=== PATIENT | female | born 1940 | race Caucasian/White ===

== ENCOUNTER → 2017-06-25 | Outpatient (CLI) | payer OTHER ==
[~2017-06-25] VITALS: Ht 160 cm; Wt 99.2 kg
[~2017-06-25] MED LIST: ALLEGRA ALLERG180 MG PO; ASPERDRINK81 MG PO; ASPIR 8181 MG PO; ASPIR-LOW81 MG PO; ATORVASTATIN CA40 MG PO; CALCIUM + VITA1 EACH PO; CALCIUM 500 +1 EAC5 PO; CALCIUM 600 +1 EAC8 PO; CENTRUM SILVER1 EAC4 PO; COLACE 100 MG100 MG PO; EYE CAPS VITAMIN PO; FLONASE 0.05%50 MCG NASAL; GLUCOSAMINE CH1 EAC2 PO; GLUCOTEN CAPLE1 EACH PO; HYDROCHLOROTHIA25 M2 PO; ICAPS AREDS FO1 EACH PO; LEVOTHYROXINE0.2 M1 PO; LIPITOR 20 MG T20 M1 PO; MIRALAX17 GM PO; MOBIC7.5 MG PO; MULTI VITAMIN1 EACH PO; NORCO 7.5-3251 EACH PO; PRILOSEC20 MG PO; PRINIVIL40 MG PO; PROZAC10 MG PO; RESTASIS1 EACH; VITAMIN D400 UNIT PO; ZANTAC 150MG T150 MG PO; ZYRTEC10 M5 PO
--- NOTE | ~2017-06-25 | HPC ---
[facility] [place] [address] PAIN MANAGEMENT CONSULTATION Name: JOSE VILLARREAL Room #: REG [facility] Sylvia.#: [id number] Admission: 06/25/17 Attend Phys: Roberth Heaton DO Discharge: Date of : 40 Report #: [id number] THIS REPORT FOR: //name// CC: Veda Heaton The patient is a 76-year-old female, prior seen in pain clinic nearly 2 years ago July 2015, for symptomatic lumbar radiculopathy. She somewhat lost to follow up. She had a right L2-L3 transforaminal epidural injection with overall improvement of baseline pain. She returns to pain clinic today, she was referred by Dr. Mc Shay's office for consideration for epidural injection prior to consideration for extending her fusion. She currently has a fusion at L4-L5 with bilateral pedicle screws. We were requested to repeat epidural injection at L3-L4 consideration of extending the fusion at this level. The patient returns to clinic noting pain is primarily low back, left buttock, posterior thigh, right leg down to the foot. She rates pain a 2-3 on VAS at present, gets worse with standing or walking. Worse in the evening. She has tried heat, Meloxicam 7.5 b.i.d. with nominal efficacy. PHYSICAL EXAMINATION: Shows a 76-year-old female, moderately elevated BMI at 38.7 kg/m2. Vital signs are stable as noted in the EMR. Rises from chair using armrest. Diffuse tenderness across the low back. Lumbar flexion is limited. She does have some point tenderness in the left buttock. Positive straight leg raise on the left with pain exacerbated with bilateral hip flexion. ASSESSMENT: Symptomatic lumbar radiculopathy status post decompressive laminectomy. We were requested to do an L3 epidural injection for surgical planning. If this does not afford adequate relief, we may consider L5-S1 epidural injection versus caudal injection for a component of L5 radicular symptoms as well. Thank you for allowing me to participate in the patient's care. PROCEDURE: Midline Lumbar epidural injection under fluoroscopy. PROCEDURE NOTE: After both written and informed consent to include risk of spinal cord damage, increased pain, weakness and dural puncture, the patient was taken to the fluoroscopy suite, placed in the prone position. After sterile prep and drape, a skin wheal with lidocaine was raised. A 22-gauge epidural Tuohy needle was inserted in the midline at L3-L4 with good loss to resistance. Negative aspiration for cerebrospinal fluid or blood was noted. Then 1 mL of Omnipaque under biplanar fluoroscopy showed good spread within the epidural space. This was followed with 80 mg of triamcinolone plus 1 mL of 1.5% preservative-free Xylocaine, 0.5 mL Xylocaine was then injected to flush the needle; it was removed. The patient was monitored for an appropriate period of time and discharged in good and stable condition. [address] [address] PAIN MANAGEMENT CONSULTATION Name: JOSE VILLARREAL Room #: REG VERONICA Weiss#: [id number] Admission: 06/25/17 Attend Phys: Roberth Heaton, DO Discharge: Date of : 40 Report #: [id number] The patient was discharged in good and stable condition, noting incremental improvement of baseline pain, perhaps 50%. We will have the patient to follow up in about 3 weeks to evaluate efficacy of interventional therapy. We will keep you abreast of her progress. By: 0615 0933 Roberth Heaton DO /doe
[2017-06-25 13:49] VITALS: BP 123/78
== END | disposition home or self-care (01) ==
LOC: PAIN 07:16
DX: M54.16 Radiculopathy, lumbar region (principal); Z98.890 Other specified postprocedural states; Z88.0 Allergy status to penicillin; Z88.2 Allergy status to sulfonamides; Z79.82 Long term (current) use of aspirin; Z79.899 Other long term (current) drug therapy; Z79.891 Long term (current) use of opiate analgesic

== ENCOUNTER → 2017-07-27 | Outpatient (CLI) | payer OTHER ==
[~2017-07-27] VITALS: Ht 157.5 cm; Wt 101.6 kg
[~2017-07-27] MED LIST changes: +HYDROCODON-ACE1 EAC8 PO; +HYDROCODONE-AP1 EA11 PO; +NEURONTIN 300300 M1 PO; +PRILOSEC 20 MG20 MG PO
--- NOTE | ~2017-07-27 | HPC ---
[facility] [place] [address] PAIN MANAGEMENT CONSULTATION Name: JOSE VILLARREAL Room #: REG VERONICA Weiss#: [id number] Admission: 07/27/17 Attend Phys: Roberth Heaton DO Discharge: Date of : 40 Report #: [id number] THIS REPORT FOR: //name// CC: Veda Heaton HISTORY OF PRESENT ILLNESS: The patient is a 76-year-old female, prior seen in pain clinic on 06/25/2017. We did an L3-L4 epidural injection at that time. She prior had had lumbar fusion L4-L5 in 2006. She is having ongoing axial back pain. Had had some component of neurogenic claudication. She is seen for prolonged visit today, from 10:20 10:45, greater than 50% of this 25-minute visit today was spent counseling the patient, discussing therapeutic options. She notes the epidural injection afforded near 100% relief for 2 weeks, the pain has recurred to baseline with no incremental improvement. She does note pain is primarily low back. She denies leg pain. She did see Dr. Shay. He had suggested at some point they may need to extend her fusion to include L3-L4; however, he is trying to postpone that eventuality. The patient tells me she can walk or stand about 20 minutes before low back pain becomes problematic. Difficult to tell if this is neurogenic claudication or simply axial back pain coming from lumbar spondylosis at L5-S1. Her pain is over the L5 area. It is below the level of the iliac crest and it is midline; it is exacerbated with side bending, rotation and flexion. Lower extremity strength is preserved. The patient does not have a history of osteo or rheumatoid arthritis. She is moderately obese with a BMI of 41 kilograms per meter squared, was counseled regarding increased activity and dietary discretion. Vital signs show modest hypertension 143/90, pulse 79, respirations 16. Room air oxygen saturation 98%. Subjective pain score is 4 on a VAS. She has some subjective dizziness, though states she has not fallen in the last 3 months. Prior to her back surgery, she had some left anterior tibialis weakness though to her credit with ongoing exercise, this is fairly inconsequential on physical exam. She is hypertensive. Medicines were reconciled today. She has not been on opiate therapy for chronic pain. PHYSICAL EXAMINATION: Shows a 76-year-old female, again moderately obese with a BMI of 41 kilograms per meter squared. Rises from chair using armrest. Gait is tandem and despite history of left anterior tibialis weakness, dorsiflexion is fairly symmetric as is lower extremity extension and hip flexion. She is tender across the low back and the L5-S1 area. Pain is exacerbated with rotation and side bending. She has a well-healed scar compatible with prior fusion at L4-L5. ASSESSMENT: Symptomatic lumbar spondylosis in a patient status post lumbar [address] [address] PAIN MANAGEMENT CONSULTATION Name: JOSE VILLARREAL Room #: REG VERONICA Weiss#: [id number] Admission: 07/27/17 Attend Phys: Roberth Heaton DO Discharge: Date of : 40 Report #: [id number] decompressive laminectomy. RECOMMENDATION: Discussed with the patient today about therapeutic option. We have elected to move forward with L5-S1 facet joint injections at next visit. If this affords transient relief, we will consider medial branch dorsal rami diagnostic blocks at L4 and L5 bilateral. Discharged in good and stable condition after 25-minute visit spent counseling the patient. Plan on moving forward with bilateral L5-S1 facet joint injection at next visit. This will help us determine what percentage of pain is coming from the L5-S1 facet joint versus simply an aberrant presentation of neurogenic claudication. <ELECTRONICALLY SIGNED> By: Roberth Heaton DO 07/29/17 0807 1112 1209 Roberth Heaton DO /nt
[2017-07-27 10:06] VITALS: BP 143/90
== END ==
LOC: PAIN 07-16 12:26
DX: M47.896 Other spondylosis, lumbar region (principal); Z98.890 Other specified postprocedural states

== ENCOUNTER → 2017-08-03 | Outpatient (CLI) | payer OTHER ==
[~2017-08-03] VITALS: Ht 157.5 cm; Wt 101.2 kg
--- NOTE | ~2017-08-03 | HPC ---
[facility] [place] [place] [address] PAIN MANAGEMENT CONSULTATION Name: OJSE VILLARREAL Room #: REG VERONICA Ward.#: [id number] Admission: 08/03/17 Attend Phys: Roberth Heaton DO Discharge: Date of : 40 Report #: [id number] THIS REPORT FOR: //name// CC: Veda Heaton HISTORY OF PRESENT ILLNESS: The patient is a 76-year-old female, prior seen in pain clinic on 08/02/2017. We sought authorization for bilateral L5-S1 facet joint injection under fluoroscopy. Returns to pain clinic today noting pain continues to be problematic in the low back, exacerbated with standing, walking and bending. She can up to about 40 minutes and then pain becomes very limiting. She rates pain today 2-1/2 on a VAS. Vital signs are stable. BMI is 40.8 kg/m2. History of osteoarthritis affecting knees and shoulders. She is on no blood thinners. Does not use opiates regularly. Ongoing pain: She has pain in the low back below the iliac crest, but above the SI joint. Pain is exacerbated with rotation and side bending. ASSESSMENT: Symptomatic lumbar spondylosis. The patient with prior L4-L5 lumbar fusion. Axial back pain. PROCEDURE: Bilateral L5-S1 facet joint injection under fluoroscopy. Follow up in 4 weeks to reevaluate. DESCRIPTION OF PROCEDURE: After informed consent was obtained, the patient was taken to the fluoroscopy suite, placed in the prone position. After sterile prep and drape, skin was raised. A 22-gauge stylet needle was placed to contact the inferior aspect of the left L5-S1 and right L5-S1 facet joint. AP and lateral projections showed good needle placement. A 0.5 mL of Omnipaque was injected, which highlighted the joints followed with 40 mg triamcinolone plus 1 mL of 0.5% preservative free bupivacaine each site. Both needles removed. The area was cleansed was applied. The patient was monitored for an appropriate period of time, discharged in good and stable condition. <ELECTRONICALLY SIGNED> By: Roberth Heaton DO 08/05/17 0811 1542 0717 Roberth Heaton DO /nt
[2017-08-03 13:46] VITALS: BP 155/84
== END | disposition home or self-care (01) ==
LOC: PAIN 07:07
DX: M47.816 Spondylosis without myelopathy or radiculopathy, lumbar region (principal); Z98.890 Other specified postprocedural states; M17.0 Bilateral primary osteoarthritis of knee; M19.011 Primary osteoarthritis, right shoulder; M19.012 Primary osteoarthritis, left shoulder; Z88.0 Allergy status to penicillin; Z88.2 Allergy status to sulfonamides; Z79.82 Long term (current) use of aspirin; Z79.899 Other long term (current) drug therapy; Z79.891 Long term (current) use of opiate analgesic

== ENCOUNTER → 2017-10-01 | Outpatient (CLI) | payer OTHER ==
[~2017-10-01] VITALS: Ht 157.5 cm; Wt 107.5 kg
[~2017-10-01] MED LIST changes: -HYDROCODONE-AP1 EA11 PO; -NEURONTIN 300300 M1 PO; -PRILOSEC 20 MG20 MG PO
--- NOTE | ~2017-10-01 | HPC ---
[facility] [place] [address] PAIN MANAGEMENT CONSULTATION Name: JOSE VILLARREAL Room #: REG VERONICA Ward.#: [id number] Admission: 10/01/17 Attend Phys: Roberth Heaton DO Discharge: Date of : 40 Report #: [id number] THIS REPORT FOR: //name// CC: Veda Heaton HISTORY OF PRESENT ILLNESS: The patient is a 76-year-old female, last seen in the pain clinic on 08/03/2017. The patient was given bilateral L5-S1 facet joint injection under fluoroscopy. She returns to pain clinic today noting that injections afforded very good relief. She notes specifically she had 100% relief for 1 month, able to stand and walk without pain. Pain has gradually begun to recur. She rates pain at 3-4 on VAS, pain is exacerbated across the low back with standing, walking and rotating. She would like to repeat L5-S1 facet joint injections; however, she is moving forward with a right total knee arthroplasty on 10/20/2017. I told the patient we would like to withhold interventional procedures 6 weeks prior to surgery for concern for poor wound healing. PHYSICAL EXAMINATION: Shows a 76-year-old female, BMI is elevated at 43.3 kilograms per meter squared. Vital signs show modest hypertension 162/89, pulse 75, respirations 20. Alert and oriented to person, place and time, judged to be a reasonable historian. She rates the pain score as 3-4 on a VAS. Some chronic pain in the right knee, again this will be addressed with a total knee arthroplasty. Diffuse tenderness across the low back, exacerbated with standing and rotating. Does have some tenderness in the SI joint. ROB test is generally negative. ASSESSMENT: 1. Symptomatic lumbar spondylosis, M47.816. 2. Lumbosacral spondylosis M47.817. 3. Right knee osteoarthritis. RECOMMENDATION: We will plan on moving forward with bilateral L5-S1 facet joint injection under fluoroscopy 6 weeks after total knee arthroplasty. Discharged in good and stable condition. <ELECTRONICALLY SIGNED> By: Roberth Heaton DO 10/02/17 0944 1635 2056 Roberth Heaton DO /nt
[2017-10-01 10:33] VITALS: BP 162/89
== END ==
LOC: PAIN 09-03 13:10
DX: M47.897 Other spondylosis, lumbosacral region (principal); M17.11 Unilateral primary osteoarthritis, right knee

== ENCOUNTER → 2017-12-07 | Outpatient (CLI) | payer OTHER ==
[~2017-12-07] VITALS: Ht 160 cm; Wt 108.0 kg
--- NOTE | ~2017-12-07 | HPC ---
[facility] [place] [address] PAIN MANAGEMENT CONSULTATION Name: JOSE VILLARREAL Room #: REG VERONICA Weiss#: [id number] Admission: 12/07/17 Attend Phys: Roberth Heaton DO Discharge: Date of : 40 Report #: [id number] THIS REPORT FOR: //name// CC: Veda Heaton HISTORY OF PRESENT ILLNESS: The patient is a pleasant 76-year-old female. She was seen back in September for lumbar and lumbosacral spondylosis without myelopathy and given bilateral L5-S1 facet joint injections. She has had similar injections back in July with overall improvement of pain. She was getting right total knee arthroplasty. We elected to postpone interventional therapy. She did have her knee arthroplasty some 6 weeks ago. She is rehabbing nicely. Gait is actually fairly tandem; however, still has pain in the low back and the L5-S1 area below the level of the fusion (L4-L5). Pain is exacerbated with standing, walking and bending; rotating and side bending do exacerbate the pain. Again, lower extremity strength is preserved. ASSESSMENT: Symptomatic lumbosacral spondylosis without myelopathy in a patient status post lumbar decompressive laminectomy and fusion at L4-L5. RECOMMENDATIONS: L5-S1 bilateral facet joint injections under fluoroscopy today. Follow up simply as needed. PROCEDURE: Bilateral L5-S1 facet joint injection under fluoroscopy. DESCRIPTION OF PROCEDURE: After written and informed consent was obtained, the patient was taken to the fluoroscopy suite and placed in prone position. After sterile prep and drape, skin wheal was raised. A 22-gauge stylet needle was placed to contact the inferior aspect of the left L5-S1. Second needle was placed to contact the inferior aspect of the right L5-S1 facet joint. A 0.5 mL of Omnipaque was injected, which showed spread within each joint. This was followed with 40 mg triamcinolone plus 1 mL of 0.5% preservative-free bupivacaine. Both needles were removed. The area was cleansed, Band-Aid was applied. The patient was allowed to ambulate to recovery, monitored for an appropriate period of time. Tentatively, follow up in 2 weeks for reevaluation. Consideration for SI joint injections if indicated clinically, though it appears that we have addressed the primary pain generator site today. <ELECTRONICALLY SIGNED> By: Roberth Heaton DO 12/09/17 0740 1057 1510 Roberth Heaton DO /nt
[2017-12-07 10:19] VITALS: BP 156/89
== END | disposition home or self-care (01) ==
LOC: PAIN 06:52
DX: M47.816 Spondylosis without myelopathy or radiculopathy, lumbar region (principal); G89.29 Other chronic pain; Z98.890 Other specified postprocedural states; Z88.0 Allergy status to penicillin; Z88.2 Allergy status to sulfonamides; Z79.82 Long term (current) use of aspirin; Z79.899 Other long term (current) drug therapy

== ENCOUNTER → 2018-01-15 | Outpatient (CLI) | payer OTHER ==
[~2018-01-15] VITALS: Ht 160 cm; Wt 109.4 kg
--- NOTE | ~2018-01-15 | HPC ---
[facility] [address] [place] [address] PAIN MANAGEMENT CONSULTATION Name: JOSE VILLARREAL Room #: REG VERNOICA Ward.#: [id number] Admission: 01/15/18 Attend Phys: Roberth Heaton DO Discharge: Date of : 40 Report #: [id number] THIS REPORT FOR: //name// CC: Veda Heaton HISTORY OF PRESENT ILLNESS: The patient is a pleasant 77-year-old female, prior seen in the pain clinic back in September, she had prior been given bilateral L5-S1 facet joint injections back in July with excellent improvement of pain, pain was gradually beginning to recur. She returns to pain clinic today noting pain has become more problematic again. She rates it a 2 on a VAS today, but typically it exacerbates throughout the day. She notes it is tender, heavy sensation in the low back, exacerbated with standing and walking. No radicular component is noted. Again, she relates over 100% relief for the first month following the past injection with only slow gradual return over the past 5-6 months. PHYSICAL EXAMINATION: Shows a pleasant 77-year-old female, BMI is modestly elevated at 42.7 kg/m2. Vital signs are stable. Alert and oriented to person, place and time, judged to be a reasonable historian. Rises from chair using armrest, modestly antalgic gait, diffuse tenderness across the low back. Pain is exacerbated with rotation and side bending. Straight leg raise negative. We discussed therapeutic options at this point. We have elected to repeat SI joint injections under fluoroscopy at L5-S1. If this does not afford long-term relief, we will consider medial branch dorsal rami diagnostic blocks at L4-L5 and consideration of radiofrequency neurolysis. ASSESSMENT: Symptomatic lumbosacral spondylosis without myelopathy, M47.817. PROCEDURE: Bilateral L5-S1 facet joint injection under fluoroscopy. PROCEDURE NOTE: After written informed consent was obtained, the patient was taken to fluoroscopy suite, placed in prone position. After sterile prep and drape, skin wheal was raised. A 22-gauge stylet needle was placed to contact the inferior aspect of the left SI joint. Negative aspiration accomplished. 1 mL of Omnipaque was injected, which showed spread within the joints followed with 30 mg of triamcinolone plus 1 mL of 0.5% preservative-free bupivacaine. Needle was removed. Attention was turned to the contralateral joint, which was treated in identical fashion. Both needles were removed, the area was cleansed, Band-Aids applied. The patient was monitored for an appropriate period of time, discharged in good and stable condition, noting significant improvement of [address] [address] PAIN MANAGEMENT CONSULTATION Name: JOSE VILLARREAL Room #: REG VERONICA Weiss#: [id number] Admission: 01/15/18 Attend Phys: Roberth Heaton DO Discharge: Date of : 40 Report #: [id number] baseline pain, in fact noting her pain was absent on discharge. Follow up simply as needed. <ELECTRONICALLY SIGNED> By: Roberth Heaton DO 01/17/18 1135 1514 2148 Roberth Heaton DO /nt
[2018-01-15 13:39] VITALS: BP 138/75
== END | disposition home or self-care (01) ==
LOC: PAIN 12-24 14:34
DX: M47.817 Spondylosis without myelopathy or radiculopathy, lumbosacral region (principal); Z68.41 Body mass index [BMI] 40.0-44.9, adult

== ENCOUNTER → 2018-03-29 | Outpatient (CLI) | payer OTHER ==
[~2018-03-29] VITALS: Ht 160 cm; Wt 108.7 kg
[~2018-03-29] MED LIST changes: +HYDROCODONE-AP1 EA11 PO; +PRILOSEC 20 MG20 MG PO
--- NOTE | ~2018-03-29 | HPC ---
[facility] [place] [address] PAIN MANAGEMENT CONSULTATION Name: JOSE VILLARREAL Room #: REG [facility] M.R.#: [id number] Admission: 03/29/18 Attend Phys: Darnell Chisholm MD Discharge: Date of : 40 Report #: [id number] THIS REPORT FOR: //name// CC: Veda Chisholm DATE OF SERVICE: 03/29/2018 REASON FOR VISIT: Followup visit for low back pain without radiation. HISTORY OF PRESENT ILLNESS: This is my first visit with the patient who has seen my partner, Dr. Roberth Heaton. Dr. Heaton has moved to [facility] and I am taking over for him at the Pain Management Center at [facility]. Jose has lumbar spondylosis with x-ray demonstrated changes throughout the lumbar spine with multilevel degenerative disk and facet arthropathy. In addition, she has spinal stenosis and neural foraminal encroachment at L3-L4. She has had a lumbar fusion at L4-L5. She has chronic backache. Dr. Heaton has felt that this was related to the lumbar facet joints and he has performed bilateral L5-S1 facet injections on 2 occasions on December 07 and January 15, both providing temporary relief. Considerations have been given to radiofrequency ablation; however, I have reviewed the injection films and in an order to denervate the L5-S1 facet joint, we would have to identify the L4 medial branch and the L5 dorsal ramus. With the pedicle screws in the position that they are, it seems that the nerve would be nearly identifiable by standard anatomy. We discussed her use of medicine in the management of her chronic pain. She has [place] 7.5/325 available. She was given a prescription for 45 tablets in June and has used it sparingly. She has found, however, that when she takes hydrocodone, her pain relief is dramatic and quite significant. If she takes an hour before she goes about her afternoon cooking or cleaning, she is able to get along quite well. She denies any side effects, whatsoever other than perhaps some very mild slowing of her bowels and for that she can use milk of magnesia. She has completed an opioid risk tool and is at low risk for misuse, abuse or addiction as one might expect at 77. Her functional assessment score is 15. She denies use of tobacco or alcohol. She has osteoarthritis of the shoulders and knees, which were also benefited from the hydrocodone. Her BMI is 42.5 and we discussed weight loss, but this would be a challenge for her. PHYSICAL EXAMINATION: VITAL SIGNS: Blood pressure is 145/89, heart rate 93 and respirations 18. MUSCULOSKELETAL: She has pain across her low back. There are 2 small scars from her previous fusion. They are mildly tender. Straight leg raising is negative. Sensation and strength are judged to be now within the lower extremities. [address] [address] PAIN MANAGEMENT CONSULTATION Name: JOSE VILLARREAL Room #: REG [facility]#: [id number] Admission: 03/29/18 Attend Phys: Darnell Chisholm MD Discharge: Date of : 40 Report #: [id number] IMPRESSION: 1. Chronic low back pain with lumbar spondylosis. 2. Osteoarthritis, bilateral knees, right worse than left. 3. Management of high risk medication. PLAN: I provided her with hydrocodone and a long discussion about the opioid crisis, use of medication cautiously and safely for such pains and I think that would be a reasonable way to manage her pain going forward. She is instructed to safeguard her medication. Opioid agreement will be signed going forward and glad to see her back in the Pain Clinic in about 3 months. By: 1723 2246 Darnell Chisholm MD /nt
[2018-03-29 13:32] VITALS: BP 145/89
== END ==
LOC: PAIN 06:32
DX: M47.816 Spondylosis without myelopathy or radiculopathy, lumbar region (principal); M17.0 Bilateral primary osteoarthritis of knee; G89.29 Other chronic pain; Z79.899 Other long term (current) drug therapy

== ENCOUNTER → 2018-05-10 | Outpatient (CLI) | payer OTHER ==
[~2018-05-10] VITALS: Ht 160 cm; Wt 111.9 kg
[~2018-05-10] MED LIST changes: +NEURONTIN 300300 M1 PO
--- NOTE | ~2018-05-10 | HPC ---
[facility] [place] [address] PAIN MANAGEMENT CONSULTATION Name: JOSE VILLARREAL Room #: REG VERONICA Sylvia.#: [id number] Admission: 05/10/18 Attend Phys: Darnell Chisholm MD Discharge: Date of : 40 Report #: [id number] THIS REPORT FOR: //name// CC: Veda Chisholm DATE OF SERVICE: 05/10/2018 CHIEF COMPLAINT: Localized right-sided sacroiliac joint pain. The patient is a pleasant 77-year-old who has had a history of lumbar fusion performed by Dr. Armin Valentine. She now has pain over the sacroiliac joint, which is likely due to hypermobility. She would like an injection. MEDICATIONS: Reviewed and reconciled from the electronic medical record. ALLERGIES: PENICILLIN AND SULFA. PQRS: Review shows history of osteoarthritis in knees, shoulders and now sacroiliac joint. She is morbidly obese with a BMI of 43.7. Weight in his relationship to chronic back pain was discussed. Vital signs are noted from the electronic medical record within normal limits. Pain intensity is 4/10. She has not fallen in the last 3 months and is not a fall risk. She denies use of blood thinners. Her medications are provided by her primary care physician, Dr. Geronimo, and she is taking medication for hypertension, managed by primary care. That medication is lisinopril and she also takes Lipitor. She takes gabapentin 300 mg and hydrocodone 7.5/325, which provides a reasonable relief. She was given a prescription in March and has no need for additional medication at this time. Her physical exam does demonstrate exquisite tenderness directly overlying the right sacroiliac joint. She has a scar from previous surgery. Kyler is positive for exacerbation of right sacroiliac joint pain. PROCEDURE: Sacroiliac injection under fluoroscopic guidance. She was taken to fluoroscopic suite, placed prone, skin prepped with ChloraPrep and skin anesthetized over the right sacroiliac joint. A 22 gauge needle was advanced into the posterior inferior capsule and 0.25 mL of Omnipaque demonstrated an excellent arthrogram was followed by 2 mL of 0.5% bupivacaine mixed with 40 mg triamcinolone. She tolerated the procedure well. Pain score reduced to 1 at discharge. Follow up as needed. By: 1217 [id number] Darnell Chisholm MD /nt
[2018-05-10 09:42] VITALS: BP 121/72
== END | disposition home or self-care (01) ==
LOC: PAIN 06:53
DX: M53.3 Sacrococcygeal disorders, not elsewhere classified (principal); G89.29 Other chronic pain; M54.9 Dorsalgia, unspecified; I10 Essential (primary) hypertension; E66.01 Morbid (severe) obesity due to excess calories; Z79.891 Long term (current) use of opiate analgesic; Z68.41 Body mass index [BMI] 40.0-44.9, adult; Z79.899 Other long term (current) drug therapy; Z98.890 Other specified postprocedural states; Z88.0 Allergy status to penicillin; Z88.2 Allergy status to sulfonamides; Z79.82 Long term (current) use of aspirin

== ENCOUNTER → 2018-06-17 | Outpatient (CLI) | payer OTHER ==
[~2018-06-17] VITALS: Ht 160 cm; Wt 111.9 kg
[~2018-06-17] MED LIST changes: +VOLTAREN GEL 1100 G2 TOP
--- NOTE | ~2018-06-17 | HPC ---
[facility] [place] [address] PAIN MANAGEMENT CONSULTATION Name: JOSE VILLARREAL Room #: REG [facility].#: [id number] Admission: 06/17/18 Attend Phys: Darnell Chisholm MD Discharge: Date of : 40 Report #: [id number] THIS REPORT FOR: //name// CC: Veda Chisholm DATE OF SERVICE: 06/17/2018 Followup visit for sacroiliac joint pain. The patient had a sacroiliac injection with a very good response on 05/10/2018. Pain relief was excellent for about 3 weeks and then it began to return. She is here today hoping that we can repeat the injection. Discussed the possibility that the second injection will provide additional relief and longer duration. Certainly it is possible. I have agreed to repeat the injection for her. No medications were provided through our clinic. PHYSICAL EXAMINATION: MUSCULOSKELETAL: Shows exquisite tenderness overlying the right sacroiliac joint. She has a positive ROB for exacerbation of right sacroiliac joint pain. VITAL SIGNS: Blood pressure 149/72, heart rate 80, respirations 16. IMPRESSION: Right sacroiliac joint dysfunction and sacroiliitis. PROCEDURE: Sacroiliac injection under fluoroscopic guidance. DESCRIPTION OF PROCEDURE: She was taken to the fluoroscopic suite and placed prone, skin prepped with ChloraPrep. Skin was anesthetized over the inferior pole of the sacroiliac joint. A 22-gauge needle was advanced through the posterior inferior capsule and into the joint space and after negative aspiration, 0.25 mL of Omnipaque was injected demonstrating an excellent arthrogram. It was then followed by 0.5 mL of 0.5% bupivacaine mixed with 40 mg of triamcinolone. She tolerated the procedure well and was observed for a short time and discharged with a pain score of 0. Follow up as needed. By: 1642 24 Darnell Chisholm MD /nt
[2018-06-17 10:17] VITALS: BP 149/72
== END | disposition home or self-care (01) ==
LOC: PAIN 09:09
DX: M53.3 Sacrococcygeal disorders, not elsewhere classified (principal); G89.29 Other chronic pain; Z98.890 Other specified postprocedural states; Z88.0 Allergy status to penicillin; Z88.2 Allergy status to sulfonamides; Z79.82 Long term (current) use of aspirin; Z79.899 Other long term (current) drug therapy; Z79.891 Long term (current) use of opiate analgesic

== ENCOUNTER → 2018-11-22 | Outpatient (CLI) | payer OTHER ==
[~2018-11-22] VITALS: Ht 160 cm; Wt 107.5 kg
[2018-11-22 10:13] VITALS: BP 132/92
--- NOTE | 2018-11-22 10:26 | NUR ---
Pain Clinic Assessment: 1. History of Osteoarthritis: SHOULDERS KNEES History of Rheumatoid Arthritis: Not Applicable 2. Height: 5 ft. 3 in. 160.0 cm. Weight: 237.0 lb. oz. 107.503 kg. Patient's BMI: 42.0 3. Vital Signs: BP: 132/92 Pulse: 75 Resp: 16 Temp: 02 Sat: 98 ECG Mon: 4. Pain Intensity: 4-5 5. Fall Risk: Dizziness: N Needs help standing or walking: N Fallen in the last 3 months: N Fall risk comments: 6. Patient on Blood Thinner: None 7. History of Hypertension: Y 8. Opioid Therapy greater than 6 weeks: N Opiate Contract Signed: 9. Risk Assessment Tool Provided: LOW RISK 0/3 10. Functional Assessment Tool: 11. Recreational Drug Use: Never Drug Type: Tobacco Use: Never Smoker Tobacco Type: Amount or Packs/day: How Many Years: Alcohol Use: No Frequency: Quant:
--- NOTE | 2018-12-06 18:13 | HPC ---
[facility] [place] [address] PAIN MANAGEMENT CONSULTATION Name: JOSE VILLARREAL Room #: REG VERONICA [facility].#: [id number] Admission: 11/22/18 ������������������ Attend Phys: Darnell Chisholm MD Discharge: ������������������ Date of : 40 Report #: [id number] THIS REPORT FOR: //name// CC: Veda Chisholm DATE OF SERVICE: 11/22/2018 REASON FOR VISIT: Followup visit for pain in the left sacroiliac joint. HISTORY OF PRESENT ILLNESS: The patient returns to the pain clinic today for a sacroiliac injection. She received a right sacroiliac injection in June of 2018 with complete pain relief for nearly 6 months. That pain relief has been sustained. The pain is now on her left side and is almost a mirror image of her previous pain and she would like an injection. PQRS is positive for osteoarthritis of shoulders, knees and she also has pain in the course in her sacroiliac joints. Her pain intensity is a 4-5/10. She has not fallen in the last 3 months, nor is she a fall risk. She is on no blood thinners and she has no current use of opioids. She is not on an agreement. SOCIAL HISTORY: She denies use of tobacco and alcohol. MEDICATIONS: All medications are reviewed and reconciled including medication she takes for hypertension provided by her primary care physician. PHYSICAL EXAMINATION: GENERAL: She moves from sitting to standing position and ambulates with mild antalgic features. VITAL SIGNS: Her blood pressure is 132/92, heart rate 75. She is 5 feet 3 inches, weight 237 pounds and her BMI is 42. MUSCULOSKELETAL: She has positive Kyler reproducing pain in the left sacroiliac joint. IMPRESSION: Left sacroiliac joint dysfunction and sacroiliitis. RECOMMENDATIONS: We will repeat the sacroiliac injection on the left at this time. She understands the procedure, risks and benefits. She is anxious to proceed. She was taken to fluoroscopic suite, placed prone, skin prepped with ChloraPrep. Skin anesthetized of the sacroiliac joint. A 22-gauge needle was advanced in the posterior inferior aspect of the joint. I injected 0.25 mL of Omnipaque and an excellent arthrogram was obtained of the sacroiliac joint is followed them by 1 mL of 0.25% bupivacaine mixed with 40 mg triamcinolone. She tolerated the procedure well and was taken to recovery room. Pain score dropped by 50% in [address] [address] PAIN MANAGEMENT CONSULTATION Name: JOSE VILLARREAL Room #: REG [facility].#: [id number] Admission: 11/22/18 ������������������ Attend Phys: Darnell Chisholm MD Discharge: ������������������ Date of : 40 Report #: [id number] recovery, hopefully to continue over the course of the next several days. Follow up as needed. ��������������������������������������������� <ELECTRONICALLY SIGNED> ���������������������������������������� By: Darnell Chisholm MD ��������������������������������������������� 12/06/18 1813 1708 0323 Darnell Chisholm MD /doe
== END | disposition home or self-care (01) ==
LOC: PAIN 06:43
DX: M53.3 Sacrococcygeal disorders, not elsewhere classified (principal); G89.29 Other chronic pain; M19.011 Primary osteoarthritis, right shoulder; M19.012 Primary osteoarthritis, left shoulder; M17.0 Bilateral primary osteoarthritis of knee; I10 Essential (primary) hypertension; Z88.0 Allergy status to penicillin; Z88.2 Allergy status to sulfonamides; Z79.82 Long term (current) use of aspirin; Z79.899 Other long term (current) drug therapy

== ENCOUNTER → 2019-01-24 | Outpatient (CLI) | payer OTHER ==
[~2019-01-24] VITALS: Ht 160 cm; Wt 104.9 kg
--- NOTE | ~2019-01-24 | HPC ---
[facility] [place] [address] PAIN MANAGEMENT CONSULTATION Name: JOSE VILLARREAL Room #: REG VERONICA M.R.#: [id number] Admission: 01/24/19 ������������������ Attend Phys: Darnell Chisholm MD Discharge: ������������������ Date of : 40 Report #: [id number] THIS REPORT FOR: //name// CC: Veda Chisholm DATE OF SERVICE: 01/24/2019 Followup visit for sacroiliac joint pain, status post lumbar laminectomy with fusion. The patient presents today once again with pain in her sacroiliac joint. This is a commonly seen syndrome in patients who have been fused through the sacrum. They have hypermobility throughout the sacroiliac joint, which causes aggravation in pain. She has responded nicely to sacroiliac injections and would like another injection today. Her last injection provided months of good relief. Pain today is a 5/10, worse with standing, walking, and housework. She is taking some medication with limited benefit. She is doing some general exercises and we have talked today about sending her to physical therapy. I think this is an excellent idea, which the patient requested. We will support her request. PQRS REVIEW: 1. Positive for osteoarthritis, history of shoulder and knee changes. 2. BMI 41. 3. Vital signs: Blood pressure 125/92 and heart rate 90. 4. Pain score 5/10 with mobility. 5. No falls recently or within the last 3 month. She is not a fall risk. 6. She takes no blood thinning. 7. All medications are reviewed and reconciled. She is on lisinopril as well as hydrochlorothiazide for hypertension. 8. She takes no opioid medication. 9. She has completed an ORT opioid risk tool with a score of 0. 10. She denies use of tobacco or alcohol. PHYSICAL EXAMINATION: Vital signs as noted above in the PQRS. She moves from sitting to standing position. Gait mildly antalgic. She has pain with an ROB, reproducing pain in the left sacroiliac joint. There is localized tenderness there. IMPRESSION: Sacroiliac joint pain with sacroiliitis improved previously with an triamcinolone injection, we will repeat today under fluoroscopic guidance. PROCEDURE: After informed consent, she was taken to fluoroscopic suite, placed prone, skin prepped with ChloraPrep. Skin anesthetized over the sacroiliac [address] [address] PAIN MANAGEMENT CONSULTATION Name: JOSE VILLARREAL [id number] Admission: 01/24/19 ������������������ Attend Phys: Darnell Chisholm MD Discharge: ������������������ Date of : 40 Report #: [id number] joint. Using biplanar fluoroscopic views, I gently advanced needle in the posterior inferior aspect of the sacroiliac joint. A 0.25 mL of Omnipaque was injected until an excellent arthrogram was achieved. A followup 1 mL of 0.25% bupivacaine and 40 mg of triamcinolone. She tolerated the procedure well. Pain was reduced at discharge. Follow up as needed. ��������������������������������������������� ���������������������������������������� By: ��������������������������������������������� 1559 [id number] Darnell Chisholm MD /nt
[2019-01-24 09:53] VITALS: BP 125/92
--- NOTE | 2019-01-24 10:16 | NUR ---
Pain Clinic Assessment: 1. History of Osteoarthritis: SHOULDERS KNEES History of Rheumatoid Arthritis: Not Applicable 2. Height: 5 ft. 3 in. 160.0 cm. Weight: 231.2 lb. oz. 104.872 kg. Patient's BMI: 41.0 3. Vital Signs: BP: 125/92 Pulse: 90 Resp: 16 Temp: 02 Sat: 96 ECG Mon: 4. Pain Intensity: 5 5. Fall Risk: Dizziness: N Needs help standing or walking: N Fallen in the last 3 months: N Fall risk comments: 6. Patient on Blood Thinner: None 7. History of Hypertension: Y 8. Opioid Therapy greater than 6 weeks: N Opiate Contract Signed: 9. Risk Assessment Tool Provided: LOW RISK 0/3 10. Functional Assessment Tool: 11. Recreational Drug Use: Never Drug Type: Tobacco Use: Never Smoker Tobacco Type: Amount or Packs/day: How Many Years: Alcohol Use: No Frequency: Quant:
== END | disposition home or self-care (01) ==
LOC: PAIN 06:49
DX: M53.3 Sacrococcygeal disorders, not elsewhere classified (principal); G89.29 Other chronic pain; I10 Essential (primary) hypertension; M19.90 Unspecified osteoarthritis, unspecified site; Z79.899 Other long term (current) drug therapy; Z98.890 Other specified postprocedural states; Z88.2 Allergy status to sulfonamides; Z79.82 Long term (current) use of aspirin

== ENCOUNTER → 2019-09-29 | Outpatient (CLI) | payer OTHER ==
[~2019-09-29] VITALS: Ht 160 cm; Wt 106.1 kg
[~2019-09-29] MED LIST changes: -LEVOTHYROXINE0.2 M1 PO; +LEVOXYL88 MCG PO; +PROZAC20 M1 PO; +SYNTHROID100 MC1 PO
--- NOTE | ~2019-09-29 | HPC ---
[facility] [place] [address] [place] [address] PAIN MANAGEMENT CONSULTATION Name: JOSE VILLARREAL Room #: REG VERONICA [facility].#: [id number] Admission: 09/29/19 Attend Phys: Darnell Chisholm MD Discharge: Date of : 40 Report #: [id number] THIS REPORT FOR: cc: Veda Geronimo MD, Cora A. MD Morgan, Richard L. MD ~ CC: Veda Chisholm DATE OF SERVICE: 09/29/2019 Followup visit for sacroiliac joint pain, chronic. The patient returns to pain clinic today for a repeat left sacroiliac joint injection. She has had previous lumbar fusion and there is hypermobility in that joint, creating pain that responds very nicely to triamcinolone. Her last injection was in January and she reported nearly complete pain relief for many months. Pain is now interfering with standing or walking. She would like to repeat the injection. PQRS REVIEW: Positive for osteoarthritis of knees, shoulders and spondylosis of the spine including the sacroiliac joint inflammation. BMI is 41. Blood pressure 140/90, heart rate 93, respirations 18, O2 sat 100, pain intensity is 4. She has not fallen in the last 3 months and is not considered a fall risk. She is not on blood thinning medications, but she does take lisinopril and hydrochlorothiazide for hypertension. She does not take opioids. Denies use of tobacco and alcohol. PHYSICAL EXAMINATION: Consistent with sacroiliac joint pain, localized tenderness over the sacroiliac joint and pain with positive ROB crossover. IMPRESSION: Sacroiliac joint pain with sacroiliac inflammation. History of previous lumbar fusion. PROCEDURE: Sacroiliac joint injection under fluoroscopic guidance. The patient was taken to the fluoroscopic suite and placed prone. Skin was prepped with ChloraPrep and I used biplanar fluoroscopic views to identify the SI joint. A 25-gauge needle was gently advanced into the posterior-inferior capsule of the joint and 0.25 mL of Omnipaque demonstrated an excellent arthrogram. It was followed then by 3 mL of 0.5% lidocaine mixed with 40 mg of triamcinolone. She tolerated the procedure well. There were no complications. [address] [address] PAIN MANAGEMENT CONSULTATION Name: JOSE VILLARREAL Room #: REG [facility]#: [id number] Admission: 09/29/19 Attend Phys: Darnell Chisholm MD Discharge: Date of : 40 Report #: [id number] She was observed in recovery room for a short time and discharged. A followup visit is scheduled on an as needed basis for her. By: 1345 1416 Darnell Chisholm MD /nt
[2019-09-29 10:02] VITALS: BP 140/90
--- NOTE | 2019-09-29 10:27 | NUR ---
Pain Clinic Assessment: 1. History of Osteoarthritis: SHOULDERS KNEES History of Rheumatoid Arthritis: DENIES 2. Height: 5 ft. 3 in. 160.0 cm. Weight: 233.8 lb. oz. 106.051 kg. Patient's BMI: 41.4 3. Vital Signs: BP: 140/90 Pulse: 93 Resp: 18 Temp: 02 Sat: 100 ECG Mon: 4. Pain Intensity: 4 walking 5. Fall Risk: Dizziness: N Needs help standing or walking: N Fallen in the last 3 months: N Fall risk comments: 6. Patient on Blood Thinner: None 7. History of Hypertension: Y 8. Opioid Therapy greater than 6 weeks: N Opiate Contract Signed: 9. Risk Assessment Tool Provided: LOW RISK 1 10. Functional Assessment Tool: 11. Recreational Drug Use: Never Drug Type: Tobacco Use: Never Smoker Tobacco Type: Amount or Packs/day: How Many Years: Alcohol Use: No Frequency: Quant:
== END | disposition home or self-care (01) ==
LOC: PAIN 06:49
DX: M53.3 Sacrococcygeal disorders, not elsewhere classified (principal); G89.29 Other chronic pain; I10 Essential (primary) hypertension; M19.90 Unspecified osteoarthritis, unspecified site; Z98.890 Other specified postprocedural states; Z79.899 Other long term (current) drug therapy; Z88.0 Allergy status to penicillin; Z88.2 Allergy status to sulfonamides

== ENCOUNTER → 2020-04-26 | Outpatient (CLI) | payer OTHER ==
[~2020-04-26] VITALS: Ht 160 cm; Wt 105.8 kg
--- NOTE | ~2020-04-26 | HPC ---
[facility] [place] [address] PAIN MANAGEMENT CONSULTATION Name: JOSE VILLARREAL Room #: REG VERONICA Sylvia.#: [id number] Admission: 04/26/20 Attend Phys: Darnell Chisholm MD Discharge: Date of : 40 Report #: [id number] CC: Veda Chisholm DATE OF SERVICE: 04/26/2020 CHIEF COMPLAINT: Left sacroiliac joint pain. HISTORY OF PRESENT ILLNESS: The patient is a patient with chronic sacroiliac joint pain, which has responded nicely to injection therapy 3-4 times a year, maximum. She has had injections performed periodically over the course of the last several years. Initially, she had epidural injections. When we identified the sacroiliac joint as pain generator, she received 2 injections in 2019. She had one injection earlier this year. All of the injections in the sacroiliac region and it provided with many months of good pain relief. This has allowed her to be more active and functional and kept her off pain medication. PHYSICAL EXAMINATION: GENERAL: She is a pleasant female. VITAL SIGNS: Blood pressure 128/70, heart rate 83, respirations 18, O2 sat 99%. She moves independently from sitting position or standing ____ normal. She has tenderness over the sacroiliac joint. Straight leg raising is negative for radicular symptoms. She has good rotation around the hip without any anterior symptoms, all of her symptoms are localized in the back with a positive contralateral ROB noted. PQRS REVIEW: Positive for hypertension, on lisinopril, hydrochlorothiazide. She does not take opioids and opioid risk tool score of 0. She denies tobacco and alcohol. Has had no falls in the last 3 months. She has diffuse osteoarthritis involving knees, shoulders and spondylosis of the spine including the sacroiliac joint. IMPRESSION: Sacroiliac joint pain on the left with inflammation and sacroiliitis. PROCEDURE: Sacroiliac joint under fluoroscopic guidance. PROCEDURE: After informed consent, she was taken to the fluoroscopic suite, placed prone, skin prepped with ChloraPrep. Skin was anesthetized over the sacroiliac joint. A 27-gauge needle and 1% lidocaine utilized. A 22-gauge spinal needle was then advanced into the posterior inferior capsule. Repositioning performed on one occasion until I received an excellent arthrogram of the SI joint with 0.25 mL of Omnipaque. It was followed by 2 mL of 0.5% bupivacaine mixed with 40 mg of triamcinolone. She tolerated the procedure well and there were no complications. She was taken to recovery room for observation and discharged shortly thereafter. Followup visit planned as needed. No medications were ordered. By: 1408 [id number] Darnell Chisholm MD /nt
[2020-04-26 13:37] VITALS: BP 125/76
--- NOTE | 2020-04-26 13:37 | NUR ---
Pain Clinic Assessment: 1. History of Osteoarthritis: SHOULDERS KNEES History of Rheumatoid Arthritis: DENIES 2. Height: ft. in. cm. Weight: lb. oz. kg. Patient's BMI: 3. Vital Signs: BP: Pulse: Resp: Temp: 02 Sat: ECG Mon: 4. Pain Intensity: 3 WALKING 5. Fall Risk: Dizziness: N Needs help standing or walking: N Fallen in the last 3 months: N Fall risk comments: 6. Patient on Blood Thinner: None 7. History of Hypertension: Y 8. Opioid Therapy greater than 6 weeks: N Opiate Contract Signed: 9. Risk Assessment Tool Provided: LOW RISK 1 10. Functional Assessment Tool: 11. Recreational Drug Use: Never Drug Type: Tobacco Use: Never Smoker Tobacco Type: Amount or Packs/day: How Many Years: Alcohol Use: No Frequency: Quant:
--- NOTE | 2020-04-26 13:47 | NUR ---
Pain Clinic Assessment: 1. History of Osteoarthritis: SHOULDERS KNEES History of Rheumatoid Arthritis: DENIES 2. Height: 5 ft. 3 in. 160.0 cm. Weight: 233.2 lb. oz. 105.779 kg. Patient's BMI: 41.3 3. Vital Signs: BP: 125/76 Pulse: 83 Resp: 18 Temp: 02 Sat: 97 ECG Mon: 4. Pain Intensity: 3 WALKING 5. Fall Risk: Dizziness: N Needs help standing or walking: N Fallen in the last 3 months: N Fall risk comments: 6. Patient on Blood Thinner: None 7. History of Hypertension: Y 8. Opioid Therapy greater than 6 weeks: N Opiate Contract Signed: 9. Risk Assessment Tool Provided: LOW RISK 1 10. Functional Assessment Tool: 11. Recreational Drug Use: Never Drug Type: Tobacco Use: Never Smoker Tobacco Type: Amount or Packs/day: How Many Years: Alcohol Use: No Frequency: Quant:
== END | disposition home or self-care (01) ==
LOC: PAIN 06:55
PROVIDERS: ATTEND Anesthesiology Pain Medicine
DX: M53.3 Sacrococcygeal disorders, not elsewhere classified (principal); G89.29 Other chronic pain; I10 Essential (primary) hypertension; M19.90 Unspecified osteoarthritis, unspecified site; Z98.890 Other specified postprocedural states; Z79.899 Other long term (current) drug therapy; Z88.0 Allergy status to penicillin; Z88.2 Allergy status to sulfonamides

== ENCOUNTER → 2021-02-15 | Outpatient (CLI) | payer OTHER ==
--- NOTE | 2021-02-15 10:40 | 2DMMODE ---
[facility] [place] [address] 2 D/M-MODE ECHOCARDIOGRAM Name: JOSE VILLARREAL Room #: REG Killian [facility]an.#: [id number] Admission: 02/15/21 Attend Phys: Scooby Lacey MD Discharge: Date of : 40 Report #: [id number] THIS REPORT FOR: cc: Veda Geronimo MD, Cora A. MD Lammoglia, Francisco J. MD ~ APPROVED REPORT Study performed: 02/15/2021 08:56:35 EXAM: Comprehensive 2D, Doppler, and color-flow Echocardiogram Patient Location: Out-Patient Room #: 2 Status: routine BSA: 2.00 HR: 68 bpm BP: 136/82 mmHg Rhythm: LBBB Other Information Study Quality: Good Indications Arrhythmia 2D Dimensions RVDd: 41.77 mm IVSd: 11.25 (7-11mm) LVOT Diam: 20.62 (18-24mm) LVDd: 46.00 mm PWd: 11.09 (7-11mm) Ascending Ao: 33.73 (22-36mm) LVDs: 32.80 (25-40mm) Left Atrium: 30.22 (27-40mm) Aortic Root: 25.77 mm IVC: 15.00 mm Volumes Left Atrial Volume (Systole) Single Plane 4CH: 28.03 mL Single Plane 2CH: 21.96 mL LA ESV Index: 16.00 mL/m2 Aortic Valve AoV Peak Humberto.: 1.49 m/s AO Peak Gr.: 8.85 mmHg LVOT Max P.76 mmHg LVOT Max V: 0.97 m/s ANTON Vmax: 2.18 cm2 [facility] [address] [place] [address] 2 D/M-MODE ECHOCARDIOGRAM Name: JOSE VILLARREAL Room #: REG [facility]#: [id number] Admission: 02/15/21 Attend Phys: Kristina Henley Discharge: Date of : 40 Report #: [id number] Mitral Valve E/A Ratio: 0.7 MV Decel. Time: 288.74 ms MV E Max Humberto.: 0.69 m/s MV A Humberto.: 0.99 m/s MV PHT: 83.74 ms IVRT: 133.79 ms Pulmonary Valve PV Peak Humberto.: 1.32 m/s PV Peak Gr.: 6.97 mmHg Pulmonary Vein P Vein S: 0.57 m/s P Vein A: 0.32 m/s P Vein D: 0.34 m/s P Vein A Dur.: 110.7 msec P Vein S/D Ratio: 1.68 Tricuspid Valve TR Peak Humberto.: 2.79 m/s TR Peak Gr.: 31.20 mmHg PA Pressure: 36.00 mmHg Left Ventricle The left ventricle is normal size. There is normal LV segmental wall motion. There is normal left ventricular wall thickness. The left ventricular systolic function is normal. The left ventricular ejection fraction is within the normal range. LVEF is 55-60%. Grade I - abnormal relaxation pattern. Right Ventricle The right ventricle is normal size. The right ventricular systolic function is normal. Atria The left atrium size is normal. The right atrium size is normal. Aortic Valve The aortic valve is normal in structure. No aortic regurgitation is present. There is no aortic valvular stenosis. Mitral Valve The mitral valve is normal in structure. Trace mitral regurgitation. No evidence of mitral valve stenosis. Tricuspid Valve [facility] [address] [place] [address] 2 D/M-MODE ECHOCARDIOGRAM Name: JOSE VILLARREAL Room #: REG [facility].#: [id number] Admission: 02/15/21 Attend Phys: Kristina Henley Discharge: Date of : 40 Report #: [id number] The tricuspid valve is normal in structure. There is trace tricuspid regurgitation. Estimated PAP 36 mmHg. There is mild pulmonary hypertension. Pulmonic Valve The pulmonary valve is normal in structure. There is no pulmonic valvular regurgitation. Great Vessels The aortic root is normal in size. IVC is normal in size and collapses >50% with inspiration. Pericardium There is no pericardial effusion. <Conclusion> The left ventricle is normal size. There is normal LV segmental wall motion. LVEF is 55-60%. The left atrium size is normal. The aortic valve is normal in structure. The mitral valve is normal in structure. Trace mitral regurgitation. The tricuspid valve is normal in structure. There is trace tricuspid regurgitation. Estimated PAP 36 mmHg. There is mild pulmonary hypertension. The pulmonary valve is normal in structure. The aortic root is normal in size. There is no pericardial effusion. <ELECTRONICALLY SIGNED> By: George Vega MD 02/15/21 1039 1039 1039 George Vega MD /INF
== END ==
LOC: CV 09:20
PROVIDERS: ATTEND Internal Medicine Cardiovascular Disease
DX: I27.20 Pulmonary hypertension, unspecified (principal); I49.9 Cardiac arrhythmia, unspecified; I44.7 Left bundle-branch block, unspecified